=== PATIENT | male | born 1965 | race Caucasian/White ===

== ENCOUNTER 2018-08-10 11:45 | Inpatient (IN) | payer MEDICAID ==
[~2018-08-10] VITALS: Ht 175.3 cm; Wt 141.6 kg
[2018-08-10] MEDS ORDERED: SUCCINYLCHOLINE CHLORIDE 20 MG/ML 10ML VIAL IV ONE (11:50)
[2018-08-10] MEDS ORDERED: ETOMIDATE (2MG/ML) 20ML VIAL IV ONE (11:50)
[2018-08-10] MEDS ORDERED: NITROGLYCERIN 0.4 MG SL TAB SL ONE ×3 (11:53→12:15)
[2018-08-10] MEDS ORDERED: FUROSEMIDE 40 MG/4 ML VIAL ONE (11:53)
[2018-08-10] MEDS ORDERED: FUROSEMIDE 40 MG/4 ML VIAL IV ONE ×2 (12:00→14:15)
[2018-08-10 12:17] LABS: Basophils # (auto) 0.1 uL; Basophils % (auto) 0.7 % (0.0-2.0); Eosinophils # (auto) 0.2 uL; Hemoglobin 17.7 g/dL (13.5-17.5); Mean Corpuscular Hgb Conc. 33.3 g/dL (32.0-36.0); Monocytes # (auto) 0.8 uL; Monocytes % (auto) 5.5 % (0.0-12.0); Nucleated Red Blood Cells % 0.1 %
[2018-08-10 12:20] LABS: Eosinophils % (auto) 1.1 % (0.0-7.0); Lymphocytes # (auto) 4.7 uL; Mean Corpuscular Hemoglobin 31.1 pg (28.0-32.0); Mean Corpuscular Volume 93.2 fL (80.0-100.0); Neutrophils % (auto) 60.7 % (37.0-80.0); Platelet Count (auto) 293 10^3/uL (140-450); Red Blood Cells 5.69 10^6/uL (4.5-5.90); Red Cell Distribution Width 12.6 % (11.8-14.3); White Blood Cell 14.7 10^3/uL (4.4-10.8)
[2018-08-10 12:38] LABS: Calcium 9.1 mg/dL (8.5-10.1); Magnesium 2.6 mg/dL (1.6-2.6); Potassium 4.5 mmol/L (3.5-5.1)
[2018-08-10 12:44] LABS: BUN/Creatinine Ratio 13.2; Bilirubin, Total 0.7 mg/dL (0.2-1.0); Total Protein 9.1 g/dL (6.4-8.2)
[2018-08-10] MEDS ORDERED: LISINOPRIL 10 MG TAB PO ONE (13:45)
[2018-08-10] MEDS ORDERED: MORPHINE SULFATE 4 MG/ML SYR/VIAL IV PRN ×2 (13:45)
[2018-08-10] MEDS ORDERED: HYDROcodone-ACET 5/325MG TAB PO PRN (13:45)
[2018-08-10] MEDS ORDERED: ONDANSETRON HCL 4 MG/2 ML VIAL IV PRN (13:45)
[2018-08-10] MEDS ORDERED: ENOXAPARIN SOD 40 MG/0.4 ML SYRINGE SC ONE ×2 (13:45→14:15)
[2018-08-10] MEDS ORDERED: NITROGLYCERIN 0.4 MG SL TAB SL PRN (13:45)
[2018-08-10] MEDS ORDERED: LISINOPRIL 10 MG TAB ONE (14:11)
[2018-08-10] MEDS ORDERED: POTASSIUM CHL 20 Meq TABLET PO ONE (14:15)
[2018-08-10] MEDS ORDERED: ASPirin 81 mg TAB PO ONE (14:15)
[2018-08-10 16:31] VITALS: BP 141/90
[2018-08-10] MEDS: FUROSEMIDE 40 MG/4 ML VIAL IV SCH (18:48)
[2018-08-10 20:02] VITALS: BP 99/59
[2018-08-10] MEDS: LORazepam 2MG/ML-1ML VIAL IV PRN (21:13)
[2018-08-10] MEDS: CARVEDILOL 3.125 MG TAB PO SCH (22:34)
[2018-08-10 22:36] VITALS: BP 93/66
[2018-08-10] MEDS: ATORVASTATIN 20 MG TAB PO SCH (22:43)
[2018-08-10] MEDS: POTASSIUM CHL 20 Meq TABLET PO SCH (22:43)
[2018-08-11] VITALS (7 sets, daily range): BP systolic 88–126; BP diastolic 51–70
[2018-08-11] MEDS: FUROSEMIDE 40 MG/4 ML VIAL IV SCH ×2 (06:27→17:54)
[2018-08-11 07:15] LABS: Basophils # (auto) 0.1 uL; Basophils % (auto) 0.8 % (0.0-2.0); Eosinophils # (auto) 0.1 uL; Eosinophils % (auto) 0.7 % (0.0-7.0); Hematocrit 42.3 % (41.0-53.0); Hemoglobin 14.3 g/dL (13.5-17.5); Lymphocytes # (auto) 2.1 uL; Lymphocytes % (auto) 22.2 % (10.0-50.0); Mean Corpuscular Hgb Conc. 33.7 g/dL (32.0-36.0); Mean Corpuscular Volume 91.8 fL (80.0-100.0); Monocytes # (auto) 0.8 uL; Monocytes % (auto) 7.9 % (0.0-12.0); Neutrophils # (auto) 6.6 uL; Neutrophils % (auto) 68.4 % (37.0-80.0); Platelet Count (auto) 208 10^3/uL (140-450); Red Cell Distribution Width 12.7 % (11.8-14.3); White Blood Cell 9.7 10^3/uL (4.4-10.8)
[2018-08-11 07:32] LABS: Albumin 3.2 g/dL (3.4-5.0); BUN/Creatinine Ratio 19.1; Calcium 8.3 mg/dL (8.5-10.1); Potassium 4.2 mmol/L (3.5-5.1)
[2018-08-11 07:35] LABS: Bilirubin, Total 0.8 mg/dL (0.2-1.0); Total Protein 6.9 g/dL (6.4-8.2)
[2018-08-11] MEDS: POTASSIUM CHL 20 Meq TABLET PO SCH ×2 (11:49→21:30)
[2018-08-11] MEDS: ASPirin 81 mg TAB PO SCH (11:49)
[2018-08-11] MEDS: CARVEDILOL 3.125 MG TAB PO SCH ×2 (11:50→21:30)
[2018-08-11] MEDS: ENOXAPARIN SOD 40 MG/0.4 ML SYRINGE SC SCH (11:50)
[2018-08-11] MEDS: LISINOPRIL 10 MG TAB PO SCH (11:50)
[2018-08-11] MEDS ORDERED: AMLO5TAB13 PO (16:53)
[2018-08-11] MEDS ORDERED: CARV6.2551 PO (16:53)
[2018-08-11] MEDS ORDERED: FURO20TA PO (16:53)
[2018-08-11] MEDS: ATORVASTATIN 20 MG TAB PO SCH (21:30)
[2018-08-11] MEDS: LORazepam 2MG/ML-1ML VIAL IV PRN (21:47)
[2018-08-12 05:00] VITALS: BP 137/58
[2018-08-12] MEDS: FUROSEMIDE 40 MG/4 ML VIAL IV SCH ×2 (05:35→17:40)
[2018-08-12 07:19] LABS: BUN/Creatinine Ratio 19.7; Calcium 8.6 mg/dL (8.5-10.1); Potassium 4.2 mmol/L (3.5-5.1)
[2018-08-12 08:39] VITALS: BP 103/67
[2018-08-12] MEDS: ASPirin 81 mg TAB PO SCH (10:19)
[2018-08-12] MEDS: POTASSIUM CHL 20 Meq TABLET PO SCH ×2 (10:19→22:16)
[2018-08-12] MEDS: ENOXAPARIN SOD 40 MG/0.4 ML SYRINGE SC SCH (10:19)
[2018-08-12] MEDS: LISINOPRIL 10 MG TAB PO SCH (10:22)
[2018-08-12] MEDS: CARVEDILOL 3.125 MG TAB PO SCH ×2 (10:22→22:00)
[2018-08-12 13:12] VITALS: BP 106/67
[2018-08-12 17:22] VITALS: BP 121/56
[2018-08-12 20:00] VITALS: BP 114/66
[2018-08-12] MEDS: ATORVASTATIN 20 MG TAB PO SCH (22:16)
[2018-08-13 00:10] VITALS: BP 114/66
[2018-08-13 05:30] VITALS: BP 111/65
[2018-08-13 06:05] LABS: BUN/Creatinine Ratio 25.8; Calcium 8.7 mg/dL (8.5-10.1); Potassium 4.4 mmol/L (3.5-5.1)
[2018-08-13] MEDS: FUROSEMIDE 40 MG/4 ML VIAL IV SCH ×2 (06:17→18:19)
[2018-08-13 09:00] VITALS: BP 109/69
[2018-08-13] MEDS: LISINOPRIL 10 MG TAB PO SCH (10:00)
[2018-08-13] MEDS ORDERED: SPIRONOLACTONE 25 MG TAB PO ONE (10:30)
[2018-08-13] MEDS: ASPirin 81 mg TAB PO SCH (10:45)
[2018-08-13] MEDS: CARVEDILOL 3.125 MG TAB PO SCH ×2 (10:46→22:14)
[2018-08-13] MEDS: ENOXAPARIN SOD 40 MG/0.4 ML SYRINGE SC SCH (10:46)
[2018-08-13] MEDS: POTASSIUM CHL 20 Meq TABLET PO SCH ×2 (10:46→22:14)
[2018-08-13 13:00] VITALS: BP 112/73
[2018-08-13 17:00] VITALS: BP 130/84
[2018-08-13 22:00] VITALS: BP 120/77
[2018-08-13] MEDS: ATORVASTATIN 20 MG TAB PO SCH (22:14)
[2018-08-14] MEDS: FUROSEMIDE 40 MG/4 ML VIAL IV SCH ×2 (05:55→17:51)
[2018-08-14 06:02] VITALS: BP 120/61
[2018-08-14 06:19] LABS: INR 0.99 (0.9-1.15); Prothrombin Time 10.6 sec (9.27-12.13)
[2018-08-14 06:37] LABS: Calcium 8.7 mg/dL (8.5-10.1); Potassium 4.5 mmol/L (3.5-5.1)
[2018-08-14 08:00] VITALS: BP 140/76
[2018-08-14 09:00] VITALS: BP 140/76
[2018-08-14] MEDS: ENOXAPARIN SOD 40 MG/0.4 ML SYRINGE SC SCH (10:00)
[2018-08-14] MEDS: ASPirin 81 mg TAB PO SCH (10:00)
[2018-08-14] MEDS: POTASSIUM CHL 20 Meq TABLET PO SCH ×2 (10:14→22:04)
[2018-08-14] MEDS: LISINOPRIL 10 MG TAB PO SCH (10:15)
[2018-08-14] MEDS: SPIRONOLACTONE 25 MG TAB PO SCH (10:16)
[2018-08-14] MEDS: CARVEDILOL 3.125 MG TAB PO SCH ×2 (10:16→22:04)
[2018-08-14] MEDS ORDERED: HYDROcodone-ACET 5/325MG TAB PO PRN (12:15)
[2018-08-14] MEDS ORDERED: MORPHINE SULFATE 4 MG/ML SYR/VIAL IV PRN ×2 (12:15)
[2018-08-14 13:00] VITALS: BP 119/75
[2018-08-14] MEDS ORDERED: METOLAZONE 5 MG TAB PO ONE (14:15)
[2018-08-14] MEDS ORDERED: POTASSIUM CHL 20 Meq TABLET PO ONE (14:15)
[2018-08-14 16:37] VITALS: BP 108/60
[2018-08-14] MEDS: PROMETHAZINE W/CODEINE 5 ML ORAL SYRUP PO PRN ×2 (17:52→22:04)
[2018-08-14 22:00] VITALS: BP 102/60
[2018-08-14] MEDS: ATORVASTATIN 20 MG TAB PO SCH (22:04)
[2018-08-15] MEDS: PROMETHAZINE W/CODEINE 5 ML ORAL SYRUP PO PRN ×5 (02:00→21:21)
[2018-08-15 05:19] VITALS: BP 115/57
[2018-08-15] MEDS: FUROSEMIDE 40 MG/4 ML VIAL IV SCH ×2 (06:00→18:16)
[2018-08-15 07:25] LABS: Calcium 8.5 mg/dL (8.5-10.1); Potassium 4.5 mmol/L (3.5-5.1)
[2018-08-15 07:27] LABS: BUN/Creatinine Ratio 25.4
[2018-08-15 08:00] VITALS: BP 115/57
[2018-08-15 09:00] VITALS: BP 129/79
[2018-08-15] MEDS: LISINOPRIL 10 MG TAB PO SCH (10:00)
[2018-08-15] MEDS: SPIRONOLACTONE 25 MG TAB PO SCH (10:29)
[2018-08-15] MEDS: POTASSIUM CHL 20 Meq TABLET PO SCH ×2 (10:30→22:06)
[2018-08-15] MEDS: ENOXAPARIN SOD 40 MG/0.4 ML SYRINGE SC SCH (10:31)
[2018-08-15] MEDS: CARVEDILOL 3.125 MG TAB PO SCH ×2 (10:31→22:05)
[2018-08-15] MEDS: ASPirin 81 mg TAB PO SCH (10:32)
[2018-08-15 13:00] VITALS: BP 111/73
[2018-08-15 17:00] VITALS: BP 121/72
[2018-08-15] MEDS: ATORVASTATIN 20 MG TAB PO SCH (22:06)
[2018-08-15 22:25] VITALS: BP 114/68
[2018-08-16] MEDS: PROMETHAZINE W/CODEINE 5 ML ORAL SYRUP PO PRN ×2 (01:43→05:55)
[2018-08-16 05:32] VITALS: BP 131/85
[2018-08-16] MEDS: FUROSEMIDE 40 MG/4 ML VIAL IV SCH ×2 (05:55→17:47)
[2018-08-16 08:00] VITALS: BP 131/85
[2018-08-16 08:00] LABS: BUN/Creatinine Ratio 23.8; Calcium 9.1 mg/dL (8.5-10.1)
[2018-08-16 09:00] VITALS: BP 145/76
[2018-08-16] MEDS ORDERED: LISI10TA6 PO (09:19)
[2018-08-16] MEDS ORDERED: SPIR25TA88 PO (09:19)
[2018-08-16] MEDS ORDERED: ATOR20TA50 PO (09:19)
[2018-08-16] MEDS ORDERED: CAR3125T PO (09:19)
[2018-08-16] MEDS ORDERED: ASPI81CH43 PO (09:19)
[2018-08-16] MEDS ORDERED: FURO40TA4 PO (09:19)
[2018-08-16] MEDS ORDERED: POTA20TA53 PO (09:19)
[2018-08-16] MEDS: POTASSIUM CHL 20 Meq TABLET PO SCH (10:29)
[2018-08-16] MEDS: ASPirin 81 mg TAB PO SCH (10:29)
[2018-08-16] MEDS: SPIRONOLACTONE 25 MG TAB PO SCH (10:29)
[2018-08-16] MEDS: CARVEDILOL 3.125 MG TAB PO SCH (10:30)
[2018-08-16] MEDS: ENOXAPARIN SOD 40 MG/0.4 ML SYRINGE SC SCH (10:31)
[2018-08-16] MEDS: LISINOPRIL 10 MG TAB PO SCH (10:31)
[2018-08-16 11:46] VITALS: BP 145/76
[2018-08-16 13:00] VITALS: BP 113/70
[2018-08-16 14:05] VITALS: BP 138/74
[2018-09-28] MEDS ORDERED: NITROGLYCERIN 0.4 MG SL TAB SL ONE (12:30)
== END 2018-08-16 20:50 | disposition home or self-care (01) | DRG 194 ==
LOC: EDBD 11:45 → ER 11:47 → TELE 11:48 → TELE-CENTR 08-11 15:13
PROVIDERS: ADMIT Internal Medicine; ATTEND Internal Medicine
PROC: 5A09457 Assistance with Respiratory Ventilation, 24-96 Consecutive Hours, Continuous Positive Airway Pressure (ICD-10-PCS; principal; 2018-08-10)
DX: I13.0 Hypertensive heart and chronic kidney disease with heart failure and stage 1 through stage 4 chronic kidney disease, or unspecified chronic kidney disease (principal); N17.0 Acute kidney failure with tubular necrosis; J96.21 Acute and chronic respiratory failure with hypoxia; E66.01 Morbid (severe) obesity due to excess calories; I42.0 Dilated cardiomyopathy; Z68.42 Body mass index [BMI] 45.0-49.9, adult; L40.9 Psoriasis, unspecified; N18.2 Chronic kidney disease, stage 2 (mild); D72.829 Elevated white blood cell count, unspecified; E78.5 Hyperlipidemia, unspecified; G47.30 Sleep apnea, unspecified; I50.43 Acute on chronic combined systolic (congestive) and diastolic (congestive) heart failure; Z53.8 Procedure and treatment not carried out for other reasons
CPT/HCPCS: 36415; 36600; 71045; 71046; 80048; 80053; 82805; 82962; 83735; 83880; 84484; 85025; 85610; 85730; 86850; 86900; 86901; 93005; 93306; 93971; 94660; 96374; 99291; G0378; J0330